=== PATIENT | female | born 1975 | race African-American/Black ===

== ENCOUNTER 2016-12-11 15:07 | Emergency (ER) | payer SELFPAY ==
[~2016-12-11] VITALS: Ht 162.6 cm; Wt 137.3 kg
[~2016-12-11 15:07] MED LIST: PRED50TA PO; ZANT150T2 PO
[2016-12-11 15:23] VITALS: BP 168/86; PULSE 94; RESP 16; TEMP 98.8; O2SAT 98
[2016-12-11] MEDS ORDERED: KETOROLAC TROMETHAMINE 60 MG/2 ML (IM) VIAL IM ONE (16:00)
[2016-12-11] MEDS ORDERED: diphenhydrAMINE HCL 50 MG/ML VIAL IM ONE (16:00)
[2016-12-11] MEDS ORDERED: PROCHLORPERAZINE INJ 10 MG/2 ML VIAL IM ONE (16:00)
[2016-12-11] MEDS ORDERED: IBUP-232 PO (16:58)
[2016-12-11] MEDS ORDERED: DIPH25TA2 PO (16:58)
--- NOTE | 2016-12-11 16:59 | PD ---
HPI . Headache Chief Complaint: ENT Complaint Time Seen by Provider: 15:48 Travel History International Travel<30 days: No Contact w/Intl Traveler<30days: No Traveled to known affect area: No History of Present Illness HPI 41-year-old female presents emergency department for evaluation of headache 3 days. Patient states her mom in October and she has had a difficult time sleeping since. Patient denies any blurred vision, nausea, vomiting, abdominal pain, chest pain, fevers, chills, neck stiffness or lightheadedness. Patient has been drained to treat her headache at home with Tylenol, Flonase and Zyrtec but the headache is persistent. There is no focal neurological deficit. Patient denies any relieving or exacerbating factors. Patient is not photophobic. PFSH Past Medical History Diminished Hearing: No ?: Not : 0 Past Surgical History Abdominal Surgery: Yes (REPAIR HIATAL HERNIA 2007) Social History Alcohol Use: No Tobacco Use: No Substance Use: No Allergies-Medications (Allergen,Severity, Reaction): Coded Allergies: No Known Allergies (Verified , 12/11/16) Reported Meds & Prescriptions Reported Meds & Active Scripts Active No Active Prescriptions or Reported Medications Review of Systems Except as stated in HPI: all other systems reviewed are Neg Physical Exam Narrative GENERAL: Well-nourished, well-developed 41-year-old female patient in no acute distress. Nontoxic appearing SKIN: Focused skin assessment warm/dry. HEAD: Normocephalic. Atraumatic. EYES: PERRLA demonstrated bilaterally. Extraocular motion intact. No scleral icterus. No injection or drainage. ENT: Mucosa pink and moist. No erythema or exudates. No uvular edema. No uvular , palatal, or tonsillar deviation. Airway patent. Nasal turbinates appear normal without nasal blood, purulent drainage or septal hematoma. NECK: Supple, trachea midline. No JVD or lymphadenopathy. CARDIOVASCULAR: Regular rate and rhythm without murmurs, gallops, or rubs. RESPIRATORY: Breath sounds equal bilaterally. No accessory muscle use. GASTROINTESTINAL: Abdomen soft, non-tender, nondistended. MUSCULOSKELETAL: No cyanosis, or edema. BACK: Nontender without obvious deformity. No CVA tenderness. r Data Data Last Documented VS Vital Signs Date Time Temp Pulse Resp B/P (MAP) Pulse Ox O2 Delivery O2 Flow Rate FiO2 12/11/16 15:23 98.8 94 16 168/86 (113) 98 Orders Orders Ketorolac Inj (Toradol Inj) (12/11/16 16:00) Diphenhydramine Inj (Benadryl Inj) (12/11/16 16:00) Prochlorperazine Inj (Compazine Inj) (12/11/16 16:00) MDM Medical Decision Making Medical Screen Exam Complete: Yes Emergency Medical Condition: Yes Differential Diagnosis Differential diagnoses include but not limited to headache, migraine, sinusitis and allergies Narrative Course 41-year-old female presents to the emergency department for evaluation of headache 3 days. Patient denies any fever, chills, shortness of breath, chest pain, blurred vision, photophobia, neck stiffness. No focal neurological deficit. Patient has no major medical history except for pre-hypertension. Patient was concerned because her blood pressure was elevated today. A migraine cocktail was ordered of Toradol 30 mg IM, Benadryl 25 mg IM and Compazine 10 mg IM but the patient stated she did not want medicine for her headache. She'll like to be discharged home with medicine instead of having it here in our facility. Patient will be discharged home with prescription for Motrin and Benadryl and instructions to follow-up with her primary care. Diagnosis Primary Impression: Headache Qualified Codes: R51 - Headache Patient Instructions: Acute Headache (DC), General Instructions Additional Instructions: Please return to emergency department if your symptoms return or worsen. Follow up with your primary care provider. Take medications as prescribed. Med/Other Pt SpecificInfo: Prescription(s) given Scripts Diphenhydramine (Diphenhydramine) 25 Mg Tab 50 MG PO Q6H Y for HEADACHE, #10 TAB 0 Refills Prov: Danielle Linder 12/11/16 Ibuprofen (Ibuprofen) 600 Mg Tab 600 MG PO Q8H Y for PAIN, #10 TAB 0 Refills Prov: Danielle Linder 12/11/16 Disposition: 01 DISCHARGE HOME Condition: Stable Danielle Linder Dec 11, 2016 16:59
== END 2016-12-11 17:15 | disposition home or self-care (01) ==
LOC: PHEFT 15:07
DX: R51 Headache (principal)
CPT/HCPCS: 99283